=== PATIENT | male | born 1990 | race Two or more races ===

== ENCOUNTER 2021-11-15 17:23 | Emergency (ER) | payer SELFPAY ==
[~2021-11-15] VITALS: Ht 180.3 cm; Wt 72.6 kg
--- NOTE | 2021-11-15 17:50 | NUR ---
JUVENTINO FROM THE STREET FOR FENTANYL USE, GIVEN NARCAN 4MG, AWAKE & ALERT UPON ARRIVAL. PLACED ON BED, AWAKE-ALERT, BREATHING EVEN AND UNLABORED SATURATING AT 98%RA, IN PAIN 11/24.
[2021-11-15] MEDS ORDERED: KETOROLAC TROMETHAMINE INJ 30 MG/ML VIAL IV ONE (18:30)
[2021-11-15] MEDS ORDERED: IV NS 0.9% 1,000 ML BAG IV ONE (18:30)
[2021-11-15] MEDS ORDERED: KETOROLAC TROMETHAMINE 15 MG/ML VIAL ONE (18:40)
--- NOTE | 2021-11-15 18:50 | NUR ---
BLOOD DRAWN AND SENT TO LAB
[2021-11-15 19:46] LABS: ALBUMIN 4.7 g/dL (3.4-5.0); BILIRUBIN,DIRECT 0.2 mg/dL (0.0-0.2); BILIRUBIN,TOTAL 0.6 mg/dL (0.2-1.0); CALCIUM, SERUM 9.5 mg/dL (8.5-10.1); POTASSIUM 3.5 mmol/L (3.5-5.1); TOTAL PROTEIN, SERUM 8.8 g/dL (6.4-8.2)
[2021-11-15 19:56] LABS: CREATININE 1.7 mg/dL (0.6-1.3)
[2021-11-15 20:04] LABS: BASOPHILS % (AUTO) 0.1 % (0.0-2.0); HEMATOCRIT 38 % (39-51); HEMOGLOBIN 10.8 g/dL (13.5-17.5); LYMPHOCYTES # (AUTO) 0.2 K/uL (0.8-4.8); LYMPHOCYTES % (AUTO) 1.7 % (20.0-44.0); MEAN CORPUSCULAR HGB CONC 28 g/dl (31.0-36.0); MEAN CORPUSCULAR VOLUME 64 fL (80-96); MONOCYTES # (AUTO) 0.7 K/uL (0.1-1.30); MONOCYTES % (AUTO) 5.1 % (2.0-12.0); NEUTROPHILS # (AUTO) 12.3 K/uL (1.8-8.9); NEUTROPHILS % (AUTO) 93.1 % (43.0-81.0); PLATELET COUNT (AUTO) 207 K/uL (150-450); WHITE BLOOD COUNT (AUTO) 13.2 K/uL (4.3-11.0)
--- NOTE | 2021-11-15 21:57 | NUR ---
WOUNDS COVERED WITH DRY DRESSING PER MD REQUEST
[2021-11-15 22:15] LABS: BAND % (MANUAL) 7 % (0.0-5.0); LYMPHOCYTES % (MANUAL) 4 % (16-48); MONOCYTES % (MANUAL) 1 % (0-11.0); NEUTROPHILS % (MANUAL) 88 (42-76)
[2021-11-16 00:20] VITALS: BP 140/80
--- NOTE | 2021-11-16 00:20 | NUR ---
Patient discharged to home in stable condition. Written and verbal after care instructions given. Patient verbalizes understanding of instruction.
== END 2021-11-16 00:20 | disposition home or self-care (01) ==
LOC: ER 17:26
DX: T24.211A Burn of second degree of right thigh, initial encounter (principal); T24.202A Burn of second degree of unspecified site of left lower limb, except ankle and foot, initial encounter; T79.9XXA Unspecified early complication of trauma, initial encounter; F11.90 Opioid use, unspecified, uncomplicated; F10.929 Alcohol use, unspecified with intoxication, unspecified; Y90.9 Presence of alcohol in blood, level not specified; X08.8XXA Exposure to other specified smoke, fire and flames, initial encounter; Y93.89 Activity, other specified; Y92.410 Unspecified street and highway as the place of occurrence of the external cause; Y99.8 Other external cause status
CPT/HCPCS: 99283; 96374; 96361; 85025; 80048; 80076; 36415; 85007; J7030; J1885